=== PATIENT | male | born 1995 | race African-American/Black ===

== ENCOUNTER 2022-04-01 18:05 | Emergency (ER) | payer SELFPAY ==
[~2022-04-01] VITALS: Ht 180.3 cm; Wt 79.0 kg
[2022-04-01 18:07] VITALS: BP 141/88
== END 2022-04-02 04:07 | disposition left against medical advice (07) ==
LOC: ER 18:05
DX: Z53.21 Procedure and treatment not carried out due to patient leaving prior to being seen by health care provider (principal)

== ENCOUNTER 2022-04-07 08:21 | Emergency (ER) | payer MEDICAID ==
[~2022-04-07] VITALS: Ht 180.3 cm; Wt 89.0 kg
[2022-04-07 08:27] VITALS: BP 134/95
[2022-04-07] MEDS ORDERED: IBUP-2030 MT (09:26)
[2022-04-07] MEDS ORDERED: IBUPROFEN 800MG TABLET PO ONE (09:30)
== END 2022-04-07 09:41 | disposition home or self-care (01) ==
LOC: ER 08:21
DX: M54.40 Lumbago with sciatica, unspecified side (principal)
CPT/HCPCS: 72100; 99283